=== PATIENT | female | born 1995 ===

== ENCOUNTER 2019-08-15 02:22 | Emergency (ER) | payer OTHER, SELFPAY ==
[2019-08-15] MEDS ORDERED: Lorazepam 2 MG/ML VIAL ONE (02:26)
[2019-08-15] MEDS ORDERED: EPINEPHrine 1 MG/ML AMP ONE (02:40)
== END 2019-08-15 02:55 | disposition home or self-care (01) ==
LOC: BURERS 02:22
DX: F43.0 Acute stress reaction (principal); F41.9 Anxiety disorder, unspecified; F32.9 Major depressive disorder, single episode, unspecified; F17.290 Nicotine dependence, other tobacco product, uncomplicated; Z79.899 Other long term (current) drug therapy
CPT/HCPCS: 99284; J0171; J2060